=== PATIENT | male | born 2000 | race Caucasian/White ===

== ENCOUNTER 2022-09-11 01:54 | Emergency (ER) | payer OTHER ==
[2022-09-11 02:04] VITALS: BP 157/90; PULSE 92; RESP 18; TEMP 97.8; BMI 32.3
[2022-09-11] MEDS ORDERED: LIDOCAINE 5% TOPICAL PATCH TP ONE (02:54)
[2022-09-11] MEDS ORDERED: LIDOCAINE 5% TOPICAL PATCH ONE (03:00)
[2022-09-11] MEDS ORDERED: BACLOFEN 10 MG TABLET (FP) PO ONE (03:06)
[2022-09-11] MEDS ORDERED: KETOROLAC TROMETHAMINE 30 MG/1 ML VIAL IM ONE (03:06)
[2022-09-11] MEDS ORDERED: BACLOFEN 10 MG TABLET (FP) ONE (03:10)
[2022-09-11] MEDS ORDERED: KETOROLAC TROMETHAMINE 30 MG/1 ML VIAL ONE (03:10)
== END 2022-09-11 04:21 | disposition home or self-care (01) ==
LOC: JER 01:54
PROC: 3E0233Z Introduction of Anti-inflammatory into Muscle, Percutaneous Approach (ICD-10-PCS; principal; 2022-09-11)
DX: M54.50 Low back pain, unspecified (principal)
CPT/HCPCS: 72070-TC-FY; 72100-TC-FY; 99284-25; J0475

== ENCOUNTER 2022-09-19 21:56 | Emergency (ER) | payer OTHER ==
[2022-09-19 22:17] VITALS: BP 129/83; PULSE 101; RESP 20; TEMP 98.2; BMI 29.7
[2022-09-20 01:53] LABS: BASO % 0.7 % (0-2.0); EOS % 0.2 % (0-4.5); HEMATOCRIT 44.2 % (35.4-49); HEMOGLOBIN 14.6 GM/dL (11.7-16.9); LYMPH % 19.1 % (8-40); MCH 27.9 pg (25.7-33.7); MEAN CELL VOLUME 84.5 fl (80-96); MEAN PLT VOLUME 7.8 fl (7.5-11.1); MONO % 5.6 % (3.8-10.2); NEUT % 74.4 % (42.8-82.8); PLATELET COUNT 334 10^3/uL (134-434); RBC 5.23 M/mm3 (4.00-5.60); RDW 13.7 % (11.9-15.9); WHITE BLOOD COUNT 11.6 K/mm3 (4.0-10.0)
[2022-09-20 02:13] LABS: CHLORIDE 109 mmol/L (98-107); SODIUM 142 mmol/L (136-145)
[2022-09-20 02:15] LABS: CALCIUM 9.3 mg/dL (8.5-10.1)
[2022-09-20 02:16] LABS: ALBUMIN 4.2 g/dl (3.4-5.0); ANION GAP 11 MMOL/L (8-16); CO2 22 mmol/L (21-32); GLUCOSE,RANDOM 113 mg/dL (74-106)
[2022-09-20 02:19] LABS: CREATININE 0.9 mg/dL (0.55-1.3); SGOT/AST 11 U/L (15-37); SGPT/ALT 18 U/L (13-61)
[2022-09-20 02:20] LABS: BILIRUBIN,TOTAL 0.4 mg/dL (0.2-1); TOT PROT 7.5 g/dl (6.4-8.2)
[2022-09-20 02:21] LABS: ALK PHOS 84 U/L (45-117)
== END 2022-09-20 11:17 | disposition home or self-care (01) ==
LOC: JER 21:56
DX: R45.851 Suicidal ideations (principal)
CPT/HCPCS: 36415; 80053; 80307; 84436; 84439; 84443; 85025; 93005; 93010; 99285-25; C9803-CS; U0003; U0005